=== PATIENT | female | born 1985 | race Caucasian/White ===

== ENCOUNTER 2022-02-14 06:45 | Day surgery (SDC) | payer BC ==
[2022-02-12 09:44] LABS: Mean Corpuscular HGB CONC 32.5 g/dL (32.0-36.0); Mean Corpuscular Hemoglobin 26.8 pg (27.0-33.0); Mean Corpuscular Volume 82.2 fl (81.6-98.3); Mean Platelet Volume 9.6 fl (7.4-10.4); Platelet Count 381 10x3/uL (150-450); RBC Distribution Width 16.7 % (11.5-14.5); Red Blood Cell (RBC) Count 4.11 10x6/uL (3.90-5.03)
[2022-02-12 10:07] LABS: BHCG - Serum Negative (NEGATIVE); Pregs Control Background? CLEAR/WHITE (CLR/WHITE); Pregs Control Bar Appear? YES (CONTROL BAR)
[2022-02-12 10:14] LABS: Anion Gap 15 mmol/L (10-20); BUN (Urea Nitrogen) 11 mg/dL (7.0-18.7); Calc. Creatinine Clearance 0 mL/min (70-130); Carbon Dioxide 23 mmol/L (22-29); Chloride 107 mmol/L (98-107); Estimated GFR 99; Glucose 89 mg/dL (70-105); Potassium 4.7 mmol/L (3.5-5.1); Sodium 140 mmol/L (136-145)
[2022-02-13 10:49] VITALS: BMI 23.3
[2022-02-14] MEDS ORDERED: Midazolam HCl 2 mg/2 ml Vial ONE ×2 (07:08→07:15)
[2022-02-14] MEDS ORDERED: PROPOFOL 20 ML ONE (07:08)
[2022-02-14] MEDS ORDERED: Lidocaine 1% PF 5 ML VIAL ONE (07:08)
[2022-02-14] MEDS ORDERED: Fentanyl 100 MCG/2 ML VIAL ONE ×2 (07:08→08:47)
[2022-02-14] MEDS ORDERED: Dexamethasone 4 mg/ml Vial ONE (07:09)
[2022-02-14] MEDS ORDERED: Ondansetron PF 4 MG/2 ML Vial ONE (07:09)
[2022-02-14] MEDS ORDERED: CEFAZOLIN 2 GM VIAL ONE (07:11)
[2022-02-14] MEDS ORDERED: Famotidine/PF 20 mg/2ml Vial ONE (07:15)
[2022-02-14] MEDS ORDERED: Ketorolac Tromethamine 30 MG/ML VIAL ONE (08:04)
[2022-02-14] MEDS ORDERED: HYDROcodone/Acetaminophen 5/325 mg Tablet ONE (09:07)
== END 2022-02-14 09:55 | disposition home or self-care (01) ==
LOC: CSHSDC 06:45
PROVIDERS: ATTEND Obstetrics & Gynecology
PROC: 0U5B8ZZ Destruction of Endometrium, Via Natural or Artificial Opening Endoscopic (ICD-10-PCS; principal; 2022-02-14)
PROC: 0UDB8ZZ Extraction of Endometrium, Via Natural or Artificial Opening Endoscopic (ICD-10-PCS; principal; 2022-02-14)
DX: D25.9 Leiomyoma of uterus, unspecified (principal); N92.0 Excessive and frequent menstruation with regular cycle; N30.00 Acute cystitis without hematuria; J45.909 Unspecified asthma, uncomplicated; F17.290 Nicotine dependence, other tobacco product, uncomplicated; Z79.899 Other long term (current) drug therapy; Z91.018 Allergy to other foods; Z20.822 Contact with and (suspected) exposure to COVID-19
CPT/HCPCS: 80048; 84703; 85027; 86850; 86900; 86901; 87811; 88305; J0690; J1100; J1885; J2250; J2405; J2704; J3010; S0028